=== PATIENT | female | born 1985 | race American Indian/Alaskan Native ===

== ENCOUNTER 2020-11-24 09:28 | Emergency (ER) | payer BC ==
[2020-11-24] MEDS ORDERED: FLUORESCEIN 1 MG STRIP OP ONE (13:10)
[2020-11-24] MEDS ORDERED: TETRACAINE 0.5% OPHTH SOLN 4ML OU ONE (13:11)
--- NOTE | 2020-11-24 13:26 | Emergency Department Report ---
ED Eye Problem HPI - General Chief complaint: Eye Problems Stated complaint: Lt eye Rt arm pain Time Seen by Provider: 11/24/20 12:38 Source: patient Mode of arrival: Ambulatory Limitations: No Limitations - History of Present Illness Initial comments: This is a 35-year-old female nontoxic, well nourished in appearance, no acute signs of distress presents to the ED with 2 complaints: 1) left eye redness that started yesterday. Patient stated that she accidentally poked herself in the eye. Patient denies any other injuries or trauma to the eye. Patient denies any symptoms to right eye. Denies any floaters. Patient denies any visual changes or decreased vision. Patient denies any fever, chills, nausea, vomiting, chest pain, breath, headache, stiff neck numbness or tingling. Patient denies any allergies. 2) acute on chronic intermittent right lateral rib pain x6 months. Currently patient denies any symptoms of pain. Patient denies any radiation of pain. Patient describes pain as sharp intermittently. Patient denies any upper respiratory symptoms. Patient denies any shortness of breath, chest pains, hemoptysis, fever, chills, nausea, vomiting, headache, stiff neck, numbness, tingling, abdominal pain. Stated mostly aggravated with movement. Patient denies any recent travels or long car rides. Patient denies any recent s urgeries or any sick contacts. Patient denies any drug allergies. Denies taking control or any other contraceptives. Patient denies being up-to-date with tetanus. MD chief complaint: eye pain, eye redness -: days(s) Location: left eye Place: home Eye Symptoms: pain Severity: mild Severity scale (0 -10): 3 If Pain, Quality: aching (left eye) Associated Symptoms: none. denies: headache, neck pain, nausea/vomiting, cough, rhinorrhea, fever, shortness of breath Treatments Prior to Arrival: none - Related Data Patient Tetanus UTD: No Previous Rx's Medication Instructions Recorded Last Taken Type Acetaminophen/Codeine 1 tab PO Q6H PRN #14 tab 03/21/14 Unknown Rx [Acetaminophen-Codeine #3 TAB] Cyclobenzaprine [Flexeril 10mg] 10 mg PO TID PRN #14 tablet 03/21/14 Unknown Rx Ibuprofen [Motrin 800 MG tab] 800 mg PO Q8H #30 tablet 03/21/14 Unknown Rx Polymyxin B Sulf/Trimethoprim 3 drops OS TID 7 Days #1 bottle 11/24/20 Unknown Rx [Polytrim Eye Drops] Allergies Allergy/AdvReac Type Severity Reaction Status Date / Time No Known Allergies Allergy Unverified 03/20/14 17:13 ED Review of Systems ROS: Stated complaint: Lt eye Rt arm pain Other details as noted in HPI Comment: All other systems reviewed and negative Constitutional: denies: chills, fever Eyes: eye pain. denies: eye discharge, vision change ENT: denies: ear pain, throat pain Respiratory: denies: cough, shortness of breath, wheezing Cardiovascular: denies: chest pain, palpitations Endocrine: no symptoms reported Gastrointestinal: denies: abdominal pain, nausea, diarrhea Genitourinary: denies: urgency, dysuria, discharge Musculoskeletal: denies: back pain, joint swelling, arthralgia Skin: denies: rash, lesions Neurological: denies: headache, weakness, paresthesias Psychiatric: denies: anxiety, depression Hematological/Lymphatic: denies: easy bleeding, easy bruising ED Past Medical Hx - Past Medical History Hx Hypertension: Yes - Surgical History Past Surgical History?: No - Social History Smoking Status: Never Smoker Substance Use Type: None - Medications Home Medications: Home Medications Medication Instructions Recorded Confirmed Last Taken Type Acetaminophen/Codeine 1 tab PO Q6H PRN #14 tab 03/21/14 Unknown Rx [Acetaminophen-Codeine #3 TAB] Cyclobenzaprine [Flexeril 10mg] 10 mg PO TID PRN #14 tablet 03/21/14 Unknown Rx Ibuprofen [Motrin 800 MG tab] 800 mg PO Q8H #30 tablet 03/21/14 Unknown Rx Polymyxin B Sulf/Trimethoprim 3 drops OS TID 7 Days #1 bottle 11/24/20 Unknown Rx [Polytrim Eye Drops] ED Physical Exam - General Limitations: No Limitations General appearance: alert, in no apparent distress - Head Head exam: Present: atraumatic, normocephalic - Eye Eye exam: Present: normal appearance, PERRL, EOMI - Expanded Eye Exam Expanded Eyelids: Normal Inspection: Left Pupils: Regular, Round: Left Sclera/Conjunctival: Hemorrhage: Left Visual acuity (R) = 20/: 20 Visual acuity (L) = 20/: 20 - Neck Neck exam: Present: normal inspection, full ROM. Absent: lymphadenopathy - Respiratory Respiratory exam: Present: normal lung sounds bilaterally. Absent: respiratory distress, wheezes, rales, rhonchi, stridor, chest wall tenderness, accessory muscle use, decreased breath sounds, prolonged expiratory - Cardiovascular Cardiovascular Exam: Present: regular rate, normal rhythm, normal heart sounds. Absent: bradycardia, tachycardia, irregular rhythm, systolic murmur, diastolic murmur, rubs, gallop, clicks - Extremities Exam Extremities exam: Present: full ROM - Back Exam Back exam: Present: normal inspection, full ROM. Absent: tenderness, CVA tenderness (R), CVA tenderness (L), muscle spasm, paraspinal tenderness, vertebral tenderness, rash noted - Neurological Exam Neurological exam: Present: alert, oriented X3, normal gait - Psychiatric Psychiatric exam: Present: normal affect, normal mood - Skin Skin exam: Present: warm, dry, intact, normal color. Absent: rash - Other Other exam information: Under Aguila lamp, I used fluorescein and tetracaine to examine cornea for corneal abrasion or foreign body, negative for foreign body noted upon exam. Patient does have a small corneal abrasion to the left eye. ED Course Vital Signs 11/24/20 09:51 Temperature 98.7 F Pulse Rate 85 Respiratory 18 Rate Blood Pressure 128/78 O2 Sat by Pulse 98 Oximetry - Reevaluation(s) Reevaluation #1: 11/24/20 13:31 Patient is speaking in full sentences with no signs of distress noted. ED Medical Decision Making - Radiology Data [facility] [address] [place] [address] XRay Report Signed Patient: NOELLE BOLAÑOS MR#: [id number] : 1985 Acct:[id number] Age/Sex: 35 / F ADM Date: 11/24/20 Loc: ED Attending Dr: Ordering Physician: JOSETTE SANCHEZ NP Date of Service: 11/24/20 Procedure(s): XR ribs UNI w PA Chest 3+V RT Accession Number(s): [id number] cc: JOSETTE SANCHEZ NP Fluoro Time In Minutes: RIGHT RIBS 5 VIEWS INDICATION: Pain in right ribs. COMPARISON: None available. FINDINGS: RIBS: No acute, displaced fracture or other significant abnormality. CHEST: No acute findings. No pneumothorax. ADDITIONAL FINDINGS: No additional significant findings. IMPRESSION: No acute findings. Signer Name: Gabriele Encarnacion MD Signed: 11/24/2020 2:19 PM Workstation Name: [id number] Transcribed By: MARCUS Dictated By: Gabriele Encarnacion MD Electronically Authenticated By: Gabriele Encarnacion MD Signed Date/Time: 11/24/201418 DD/ 17 TD/TT: - Medical Decision Making 35-year-old female that presents with left corneal abrasion. Patient is stable and was examined by me. Vital signs are stable. Patient received tetanus in the ER. Patient be discharged with Polytrim. Patient is notified of the x-ray results of chest and rib with no questions noted by the patient. PERC score for DVT/SVT/PE 0 points. Currently patient denies any symptoms today. Patient has normal visual acuity. Patient was instructed to follow-up with a opht halmologist doctor in 2 days or if symptoms worsen and continue return to emergency room as soon as possible. At time of discharge, the patient does not seem toxic or ill in appearance. No acute signs of distress noted. Patient agrees to discharge treatment plan of care. No further questions noted by the patient. Critical care attestation.: If time is entered above; I have spent that time in minutes in the direct care of this critically ill patient, excluding procedure time. ED Disposition Clinical Impression: Left corneal abrasion Qualifiers: Encounter type: initial encounter Qualified Code(s): S05.02XA - Injury of conjunctiva and corneal abrasion without foreign body, left eye, initial encounter Chest wall muscle strain Qualifiers: Encounter type: initial encounter Qualified Code(s): S29.011A - Strain of muscle and tendon of front wall of thorax, initial encounter Disposition: DC-01 TO HOME OR SELFCARE Is pt being admited?: No Does the pt Need Aspirin: No Condition: Stable Instructions: Corneal Abrasion Additional Instructions: Follow-up with a mechatronics engineer doctor in 2 days or if symptoms worsen and continue return to emergency room as soon as possible. Prescriptions: Polymyxin B Sulf/Trimethoprim [Polytrim Eye Drops] 3 drops OS TID 7 Days #1 bottle Referrals: PRIMARY CARE, [Primary Care Provider] - 3-5 Days CARBUCCIA,YOSHI, MD [Staff Physician] - 3-5 Days SHEILA MATOS MD [Staff Physician] - 11/26/20 Forms: Work/School Release Form(ED) Time of Disposition: 14:36
--- NOTE | 2020-11-24 14:24 | XRay Report ---
RIGHT RIBS 5 VIEWS INDICATION: Pain in right ribs. COMPARISON: None available. FINDINGS: RIBS: No acute, displaced fracture or other significant abnormality. CHEST: No acute findings. No pneumothorax. ADDITIONAL FINDINGS: No additional significant findings. IMPRESSION: No acute findings. Signer Name: Gabriele Encarnacion MD Signed: 11/24/2020 2:19 PM Workstation Name: [id number]
[2020-11-24] MEDS ORDERED: TETANUS,DIPH,PERTUSS(ACELL) VACCINE 0.5 ML SYRINGE IM ONE (14:31)
[2020-11-24 15:42] VITALS: BP 122/81
== END 2020-11-24 15:42 | disposition home or self-care (01) ==
LOC: ED 09:28
DX: S29.011A Strain of muscle and tendon of front wall of thorax, initial encounter (principal); S05.02XA Injury of conjunctiva and corneal abrasion without foreign body, left eye, initial encounter; I10 Essential (primary) hypertension; Z79.1 Long term (current) use of non-steroidal anti-inflammatories (NSAID); Z79.899 Other long term (current) drug therapy; X58.XXXA Exposure to other specified factors, initial encounter; Y93.89 Activity, other specified; Y92.89 Other specified places as the place of occurrence of the external cause; Y99.8 Other external cause status
CPT/HCPCS: 90471; 90715

== ENCOUNTER 2021-11-04 09:41 | Emergency (ER) | payer BC, OTHER ==
[2021-11-04 09:47] VITALS: BP 139/87
--- NOTE | 2021-11-04 10:36 | XRay Report ---
CHEST 2 VIEWS INDICATION / CLINICAL INFORMATION: coughing and wheezing. COMPARISON: 11/24/2020 FINDINGS: SUPPORT DEVICES: None. HEART / MEDIASTINUM: No significant abnormality. LUNGS / PLEURA: No significant pulmonary or pleural abnormality. No pneumothorax. ADDITIONAL FINDINGS: No significant additional findings. IMPRESSION: 1. No acute findings. No significant change since 11/24/2020 exam. Signer Name: Donnell Linton Jr, MD Signed: 11/04/2021 10:32 AM Workstation Name: [id number]
[2021-11-04 13:23] LABS: Basophils # (Auto) 0.1 K/mm3 (0.0-0.1); Eosinophils # (Auto) 0.3 K/mm3 (0.0-0.4); Eosinophils % (Auto) 4.9 % (0.0-4.3); Hematocrit 40.8 % (30.3-42.9); Hemoglobin 12.7 gm/dl (10.1-14.3); Lymphocytes # (Auto) 2.9 K/mm3 (1.2-5.4); Lymphocytes % (Auto) 40.3 % (13.4-35.0); Mean Corpuscular HGB Conc 31 % (30-34); Mean Corpuscular Volume 74 fl (79-97); Monocytes # (Auto) 0.5 K/mm3 (0.0-0.8); Monocytes % (Auto) 7.6 % (0.0-7.3); Platelet Count 263 K/mm3 (140-440); Red Cell Distribution Width 15.1 % (13.2-15.2)
[2021-11-04 13:45] LABS: Alanine Aminotransferase 17 units/L (7-56); Albumin 4.3 g/dL (3.9-5); Blood Urea Nitrogen 10 mg/dL (7-17); Calcium 9.2 mg/dL (8.4-10.2); Hemolysis Index 3
[2021-11-04 13:47] LABS: BUN/Creatinine Ratio 20
--- NOTE | 2021-11-04 15:34 | Emergency Department Report ---
ED General Adult HPI - General Chief complaint: Upper Respiratory Infection Stated complaint: WHEEZING AND CHEST PAIN Source: patient Mode of arrival: Ambulatory Limitations: No Limitations - History of Present Illness Initial comments: Patient is a 36-year-old -[place] female with a history of hypertension who presents to the ED with complaint of acute onset persistent left-sided chest pain that radiates to the mid posterior thoracic area intermittently for the last 1 week. Patient also complains of shortness of breath when she lays down, characterized by wheezing and persistent dry cough over the same period. Patient states that she is approximately 2 months s/p abdominoplasty surgery. Patient states that the symptoms have been persistent since onset a week ago despite taking [id number] medications for pain and cough. Patient denies fever, chills, nausea and vomiting, neck pain, headache, dizziness, syncope, palpitations, abdominal pain, traumatic injury, heavy lifting or fall, numbness and tingling or weakness of upper and lower extremities bilaterally or diaphoresis. MD Complaint: chest pain, dyspnea, mid-posterior thoracic pain; wheezing and cough -: Sudden, week(s) (1) Location: chest Radiation: non-radiation Severity scale (0 -10): 6 Quality: aching, dull Consistency: intermittent Improves with: none Worsens with: movement Associated Symptoms: denies other symptoms, chest pain, shortness of breath. denies: confusion, cough, diaphoresis, fever/chills, headaches, loss of appetite, malaise, nausea/vomiting, rash, seizure, syncope, weakness Treatments Prior to Arrival: none - Related Data Previous Rx's Medication Instructions Recorded Last Taken Type Acetaminophen/Codeine 1 tab PO Q6H PRN #14 tab 03/21/14 Unknown Rx [Acetaminophen-Codeine #3 TAB] Cyclobenzaprine [Flexeril 10mg] 10 mg PO TID PRN #14 tablet 03/21/14 Unknown Rx Ibuprofen [Motrin 800 MG tab] 800 mg PO Q8H #30 tablet 03/21/14 Unknown Rx Polymyxin B Sulf/Trimethoprim 3 drops OS TID 7 Days #1 bottle 11/24/20 Unknown Rx [Polytrim Eye Drops] Benzonatate [Tessalon Perles] 100 mg PO Q8HR #30 cap 11/04/21 Unknown Rx Cetirizine HCl [Zyrtec 10mg tab] 10 mg PO DAILY #30 tab 11/04/21 Unknown Rx Doxycycline Hyclate 100 mg PO Q12H #20 cap 11/04/21 Unknown Rx Ibuprofen [Motrin] 800 mg PO Q8HR PRN #30 tablet 11/04/21 Unknown Rx Allergies Allergy/AdvReac Type Severity Reaction Status Date / Time No Known Allergies Allergy Unverified 03/20/14 17:13 ED Review of Systems ROS: Stated complaint: WHEEZING AND CHEST PAIN Other details as noted in HPI Constitutional: denies: chills, fever Eyes: denies: eye pain, eye discharge, vision change ENT: denies: ear pain, throat pain Respiratory: cough, shortness of breath, wheezing Cardiovascular: chest pain. denies: palpitations Endocrine: no symptoms reported Gastrointestinal: denies: abdominal pain, nausea, vomiting, diarrhea Genitourinary: denies: urgency, dysuria, discharge Musculoskeletal: back pain (mid-posterior thoracic pain). denies: joint swelling, arthralgia Skin: denies: rash, lesions Neurological: denies: headache, weakness, paresthesias Psychiatric: denies: anxiety, depression Hematological/Lymphatic: denies: easy bleeding, easy bruising ED Past Medical Hx - Past Medical History Hx Hypertension: Yes - Social History Smoking Status: Never Smoker Substance Use Type: None - Medications Home Medications: Home Medications Medication Instructions Recorded Confirmed Last Taken Type Acetaminophen/Codeine 1 tab PO Q6H PRN #14 tab 03/21/14 Unknown Rx [Acetaminophen-Codeine #3 TAB] Cyclobenzaprine [Flexeril 10mg] 10 mg PO TID PRN #14 tablet 03/21/14 Unknown Rx Ibuprofen [Motrin 800 MG tab] 800 mg PO Q8H #30 tablet 03/21/14 Unknown Rx Polymyxin B Sulf/Trimethoprim 3 drops OS TID 7 Days #1 bottle 11/24/20 Unknown Rx [Polytrim Eye Drops] Benzonatate [Tessalon Perles] 100 mg PO Q8HR #30 cap 11/04/21 Unknown Rx Cetirizine HCl [Zyrtec 10mg tab] 10 mg PO DAILY #30 tab 11/04/21 Unknown Rx Doxycycline Hyclate 100 mg PO Q12H #20 cap 11/04/21 Unknown Rx Ibuprofen [Motrin] 800 mg PO Q8HR PRN #30 tablet 06/10/22 Unknown Rx ED Physical Exam - General Limitations: No Limitations General appearance: alert, in no apparent distress - Head Head exam: Present: atraumatic, normocephalic, normal inspection - Eye Eye exam: Present: normal appearance, PERRL, EOMI Pupils: Present: normal accommodation - ENT ENT exam: Present: normal exam, normal orophraynx, mucous membranes moist, TM's normal bilaterally, normal external ear exam - Neck Neck exam: Present: normal inspection, full ROM. Absent: tenderness - Respiratory Respiratory exam: Present: normal lung sounds bilaterally. Absent: respiratory distress, wheezes, rales, rhonchi, stridor, chest wall tenderness, accessory muscle use, decreased breath sounds, prolonged expiratory - Cardiovascular Cardiovascular Exam: Present: regular rate, normal rhythm, normal heart sounds. Absent: systolic murmur, diastolic murmur, rubs, gallop - GI/Abdominal GI/Abdominal exam: Present: soft, normal bowel sounds. Absent: tenderness, guarding, rebound, rigid, hyperactive bowel sounds, hypoactive bowel sounds, organomegaly - Extremities Exam Extremities exam: Present: normal inspection, full ROM, normal capillary refill. Absent: tenderness - Back Exam Back exam: Present: normal inspection, full ROM, tenderness (Palpable mid- posterior thoracic pain), muscle spasm, paraspinal tenderness. Absent: CVA tenderness (R), CVA tenderness (L), vertebral tenderness - Neurological Exam Neurological exam: Present: alert, oriented X3, CN II-XII intact, normal gait, reflexes normal - Psychiatric Psychiatric exam: Present: normal affect, normal mood - Skin Skin exam: Present: warm, dry, intact, normal color. Absent: rash ED Course Vital Signs 11/04/21 09:46 Temperature 98.4 F Pulse Rate 83 Respiratory 18 Rate Blood Pressure 139/87 O2 Sat by Pulse 94 Oximetry ED Medical Decision Making - Lab Data Result diagrams: 11/04/21 13:04 11/04/21 13:04 - EKG Data EKG shows normal: sinus rhythm Rate: normal - EKG Data Interpretation: normal EKG 11/04/21 17:37 EKG shows normal sinus rhythm with a ventricular rate of 84 bpm and probable left atrial enlargement, there are no ST or T wave abnormalities. - Radiology Data Radiology results: report reviewed, image reviewed [facility] [address] [place] [address] XRay Report Signed Patient: NOELLE BOLAÑOS MR#: [id number] : 1985 Acct:[id number] Age/Sex: 36 / F ADM Date: 11/04/21 Loc: ED Attending Dr: Ordering Physician: KAYLA SAXENA MD Date of Service: 11/04/21 Procedure(s): XR chest routine 2V Accession Number(s): [id number] cc: ED ODESSA, Fluoro Time In Minutes: CHEST 2 VIEWS INDICATION / CLINICAL INFORMATION: coughing and wheezing. COMPARISON: 11/24/2020 FINDINGS: SUPPORT DEVICES: None. HEART / MEDIASTINUM: No significant abnormality. LUNGS / PLEURA: No significant pulmonary or pleural abnormality. No pneumothorax. ADDITIONAL FINDINGS: No significant additional findings. IMPRESSION: 1. No acute findings. No significant change since 11/24/2020 exam. Signer Name: Donnell Linton Jr, MD Signed: 11/04/2021 10:32 AM Workstation Name: [id number] Transcribed By: TTR Dictated By: DONNELL LINTON JR, MD Electronically Authenticated By: DONNELL LINTON JR, MD Signed Date/Time: 11/04/211031 DD/ 31 TD/TT: [facility] [address] [place] [address] Cat Scan Report Signed Patient: NOELLE BOLAÑOS MR#: [id number] : 1985 Acct:[id number] Age/Sex: 36 / F ADM Date: 11/04/21 Loc: ED Attending Dr: Ordering Physician: GRACIA JACKSON Date of Service: 11/04/21 Procedure(s): CT angio chest Accession Number(s): [id number] cc: GRACIA JACKSON CT angio chest INDICATION / CLINICAL INFORMATION: chest pain, r/o PE due to recent surgery. TECHNIQUE: Axial CT images were obtained through the chest after injection of IV contrast. 3 plane MIP and/or 3D reconstructions were produced. All CT scans at this location are performed using CT dose reduction for ALARA by means of automated exposure control. COMPARISON: None available. FINDINGS: PULMONARY ARTERIES: No pulmonary emboli. HEART: No significant abnormality. MEDIASTINUM / CRISTOBAL: No significant abnormality. LUNGS: Lungs are clear No pleural effusion. No pneumothorax. ADDITIONAL FINDINGS: Mildly prominent bilateral axillary lymph nodes. None are pathologically enlarged. Small quantity of fluid seen in the subcutaneous tissues of the left lateral and lower chest, right lateral chest, and anterior upper abdomen. UPPER ABDOMEN: No acute findings. SKELETAL STRUCTURES: No significant osseous abnormality. IMPRESSION: 1. No CT evidence for pulmonary embolism. 2. No acute pulmonary findings. 3. Nonspecific subcutaneous edema seen along the lateral chest and anterior upper abdomen. Could be related to patient's reported history of recent surgery. Correlate clinically. Signer Name: Bryan Joaquin MD Signed: 11/04/2021 4:52 PM Workstation Name: [id number] Transcribed By: KATHLEEN Dictated By: Bryan Joaquin MD Electronically Authenticated By: Bryan Joaquin MD Signed Date/Time: 11/04/211651 DD/ 45 TD/TT: Print - Medical Decision Making This is a 36-year-old -[place] female with a history of hypertension who presents to the ED with complaint of acute onset persistent left-sided chest pain that radiates to the mid posterior thoracic area intermittently for the las t 1 week. Patient also complains of shortness of breath when she lays down, characterized by wheezing and persistent dry cough over the same period. Patient states that she is approximately 2 months s/p abdominoplasty surgery. Patient states that the symptoms have been persistent since onset a week ago despite taking [id number] medications for pain and cough. In the ED, patient is alert and oriented x3 and is not in any distress. EKG shows normal sinus rhythm with a ventricular rate of 84 bpm and probable left atrial enlargement, there are no ST or T wave abnormalities. Chest x-ray showed no acute cardiopulmonary abnormalities or pneumonitis. Chest CTA showed no acute evidence of PE or any acute cardiopulmonary abnormalities or pneumonitis. Lab test results were reviewed and are all nonactionable. Patient heart score is 1, and patient is hemodynamically stable. Patient will discharge home on medications for pain and advised to follow-up with her primary care physician in 5 to 7 days for reevaluation or return to the ED immediately if symptoms get worse. - Differential Diagnosis Costochondritis; ACS; PE; dissection; pneumonia; muscle strain; sinusitis; Critical care attestation.: If time is entered above; I have spent that time in minutes in the direct care of this critically ill patient, excluding procedure time. ED Disposition Clinical Impression: Atypical chest pain, Acute costochondritis Acute bronchitis Qualifiers: Bronchitis organism: other organism Qualified Code(s): J20.8 - Acute bronchitis due to other specified organisms Acute frontal sinusitis Qualifiers: Recurrence: non-recurrent Qualified Code(s): J01.10 - Acute frontal sinusitis, unspecified Disposition: 01 HOME / SELF CARE / HOMELESS Is pt being admited?: No Does the pt Need Aspirin: No Condition: Stable Instructions: Sinusitis, Adult, [id number], Acute Bronchitis, Adult, Fika-xr-Xgec, Nonspecific Chest Pain, Adult, Qdvf-[id number], Acute Bronchitis (ED), Chest Wall Pain, Nbch-ir-Rnbv, Costochondritis, Gper-sp-Wrgl Additional Instructions: All lab test results were reviewed and are all nonactionable. Chest x-ray showed no acute cardiopulmonary abnormalities or pneumonitis. Chest CTA showed no evidence of pulmonary embolism or any cardiopulmonary abnormalities or pneumonitis. Based on history and physical exam findings as well as lab test results and imaging reports, symptoms are likely due to muscle strain or muscle spasm of your back or chest wall versus sinusitis due to the wheezing and congestion you experience at night when he lays down. Therefore take medications as advised, drink plenty of fluids and follow-up with your primary care physician in 7 to 10 days for reevaluation or return to the ED immediately if symptoms get worse. Prescriptions: Doxycycline Hyclate 100 mg PO Q12H #20 cap Ibuprofen [Motrin] 800 mg PO Q8HR PRN #30 tablet PRN Reason: Pain , Severe (7-10) Benzonatate [Tessalon Perles] 100 mg PO Q8HR #30 cap Cetirizine HCl [Zyrtec 10mg tab] 10 mg PO DAILY #30 tab Referrals: [facility]BA [facility]S [Other] - 3-5 Days Forms: Work/School Release Form(ED) Time of Disposition: 15:46 Print Language: LUXEMBOURGISH
--- NOTE | 2021-11-04 16:57 | Cat Scan Report ---
CT angio chest INDICATION / CLINICAL INFORMATION: chest pain, r/o PE due to recent surgery. TECHNIQUE: Axial CT images were obtained through the chest after injection of IV contrast. 3 plane MIP and/or 3D reconstructions were produced. All CT scans at this location are performed using CT dose reduction f or ALARA by means of automated exposure control. COMPARISON: None available. FINDINGS: PULMONARY ARTERIES: No pulmonary emboli. HEART: No significant abnormality. MEDIASTINUM / CRISTOBAL: No significant abnormality. LUNGS: Lungs are clear No pleural effusion. No pneumothorax. ADDITIONAL FINDINGS: Mildly prominent bilateral axillary lymph nodes. None are pathologically enlarge d. Small quantity of fluid seen in the subcutaneous tissues of the left lateral and lower chest, righ t lateral chest, and anterior upper abdomen. UPPER ABDOMEN: No acute findings. SKELETAL STRUCTURES: No significant osseous abnormality. IMPRESSION: 1. No CT evidence for pulmonary embolism. 2. No acute pulmonary findings. 3. Nonspecific subcutaneous edema seen along the lateral chest and anterior upper abdomen. Could be r elated to patient's reported history of recent surgery. Correlate clinically. Signer Name: Bryan Joaquin MD Signed: 11/04/2021 4:52 PM Workstation Name: [id number]
--- NOTE | 2021-11-06 21:26 | Electrocardiograph Report ---
[facility] Test Date: 2021-11-04 Test Time: 17:32:07 Pat Name: NOELLE BOLAÑOS Department: Room: Gender: F [employer] Hel[employer]: CHUCK : 1985 Requested By: MELODY MOY Order Number: [id number] Reading MD: Bowen Gómez Measurements Intervals [place] Rate: 84 P: 68 NE: 161 QRS: -6 QRSD: 100 T: -4 QT: 378 QTc: 447 Interpretive Statements Sinus rhythm Probable left atrial enlargement No previous ECG available for comparison Electronically Signed On 11-06-2021 21:26:43 EDT by Bowen Gómez
== END 2021-11-04 18:09 | disposition home or self-care (01) ==
LOC: ED 09:41
DX: R07.9 Chest pain, unspecified (principal); J20.8 Acute bronchitis due to other specified organisms; J01.10 Acute frontal sinusitis, unspecified; M94.0 Chondrocostal junction syndrome [Tietze]
CPT/HCPCS: 36415; 71046; 71275; 80053; 84484; 85025; 93005; 99284; Q9967